=== PATIENT | female | born 1945 | race Caucasian/White ===

== ENCOUNTER 2024-05-09 10:10 | Inpatient (IN) | payer MEDICARE, OTHER, SELFPAY ==
[2024-05-08] VITALS (29 sets, daily range): BP systolic 151–219; BP diastolic 52–99; PULSE 64–67; BMI 33.2
--- NOTE | 2024-05-08 12:24 | EDRN ---
Pt states she was at [employer] and felt out of focus and also had a headache over R eye, around R eye and all over forehead. Pt states she had eaten a large breakfast. Pt states she has not felt well all weak, irregular heart beat, headaches. Pt had a
bad fall backwards in , had LOC, lumbar F, in rehab for weak. Head aches started some time after her fall. Pt was washing hands at sink and fainted.
--- NOTE | 2024-05-08 13:01 | EDRN ---
Clark SOSA in room w/pt at this time.
--- NOTE | 2024-05-08 13:41 | ED.GENMED ---
History of Present Illness
General
Chief Complaint: Weakness
Source: patient
Exam Limitations: none
Time Seen by Provider: 05/08/24 12:37
Nursing documentation reviewed up to this point in time: agreed with
History of Present Illness
History of Present Illness:
79-year-old female presenting to the emergency department today with concerns of lightheadedness while at [employer]enominational today. Did not fully passed out but felt that she was about to was able to sit down his felt lightheaded and unsteady. She claims that
she has felt 'off' since hitting her head 3 months ago. Blood pressure was elevated prior to arrival. Denies specific chest pain shortness of breath or palpitations. Does have history of paroxysmal A-fib is on blood thinner.
Review of Systems
Review of Systems
Allergies reviewed?: Yes
All Other Systems: ROS reviewed and negative except as documented in HPI and ROS
Phy Exam
Physical Exam
Physical Exam:
GENERAL: Alert , in no apparent distress
EYE: pupils equal and reactive
NECK: Supple, no significant adenopathy.
ENT: o/p clr, mmm.
CARDIAC: Regular rate and rhythm .
LUNGS: Clear breath sounds bilaterally, no acute respiratory distress, no wheezes/rales/rhonchi
ABDOMEN: Soft, without focal tenderness, no r/g, no cvat
NEUROLOGICAL: Alert and oriented, no focal neuro deficits 5 out of 5 upper and lower extremity strength normal sensation with palpating bilaterally normal finger-nose and [id number] no pronator drift
SKIN: Warm and dry, skin intact.
MUSCULOSKELETAL: No edema, well perfused.
PSYCH: Normal and appropriate interaction.
Course
Orders/Labs/Results
Orders:
Orders
05/08/24 11:36
EKG [Electrocardiogram (*1)] Urgent
Reason for Study: Fatigue / Weakness
EKG- Treatment ONCE
05/08/24 13:14
CT Head W/o Iv Contrast Urgent
Comment:
Reason For Exam: head injury
Orthostatic VS- Treatment ONCE
05/08/24 13:36
CBC/With Diff [Complete Blood Count/With Diff] Urgent
TSH Reflex To Free T4 Urgent
05/08/24 14:17
Comprehensive Metabolic Panel Urgent
Magnesium Urgent
Troponin I Urgent
05/08/24 15:27
0.9% Sodium Chloride 500 ml [Nss] 500 ml IV BOLUS
05/08/24 15:35
Urinalysis Reflex To Culture Urgent
Date Specimen was Collected: 05/08/24
Time Specimen was Collected: 15:33
Urine Microscopic Reflex Cult Urgent
05/08/24 15:37
Acetaminophen [Tylenol] 1,000 mg .ROUTE .STK-MED ONE
05/08/24 15:38
Acetaminophen [Tylenol] 1,000 mg PO NOW STA
05/08/24 15:41
Lidocaine [Lidocaine 4% Patch] 1 patch .ROUTE .STK-MED ONE
05/08/24 15:45
Lidocaine [Lidocaine 4% Patch] 1 patch TOPICAL DAILY
Apply Lidocaine patch(s) to:: mid back
05/08/24 17:28
Metoprolol [Lopressor] 50 mg PO NOW STA
05/08/24 18:43
HydrALAZINE [Apresoline] 10 mg IV NOW STA
Abnormal Lab Results
05/08/24 05/08/24 05/08/24
13:36 14:17 14:29
RBC 3.90 L 10^6/uL
(4.20-5.40)
Hgb 11.6 L g/dL
(12.0-16.0)
Hct 34.8 L %
(37.0-47.0)
Abs Immat Gran (auto) 0.1 H 10^3/uL
(0-0.05)
Absolute Neuts (auto) 6.6 H 10^3/uL
(1.4-6.5)
BUN 32 H mg/dl
(7-17)
Glucose 154 H mg/dl
(70-99)
Total Protein 6.1 L g/dl
(6.3-8.2)
Ur Occult Blood Reflex
Urine RBC
Urine Bacteria (Reflex)
Urine Albumin (Reflex)
POC Glucose 157 H mg/dl
(70-99)
05/08/24
15:35
RBC
Hgb
Hct
Abs Immat Gran (auto)
Absolute Neuts (auto)
BUN
Glucose
Total Protein
Ur Occult Blood Reflex 1+ A
(Negative)
Urine RBC 3-6 A /HPF
(0-2)
Urine Bacteria (Reflex) Few A
(Negative)
Urine Albumin (Reflex) 4+ A
(Neg - Trace)
POC Glucose
05/08/24 13:36
05/08/24 14:17
Vital Signs
Initial and Last Documented VS:
Initial Vital Signs
Temp Pulse Resp BP Pulse Ox
98 F 73 20 219/88 99
05/08/24 11:40 05/08/24 11:40 05/08/24 11:40 05/08/24 11:40 05/08/24 11:40
Last Documented Vital Signs
Temp Pulse Resp BP Pulse Ox
98 F 60 20 206/74 97
05/08/24 11:40 05/08/24 18:34 05/08/24 18:34 05/08/24 18:34 05/08/24 18:00
MDM/Problems Addressed
MDM/Problems Addressed:
79-year-old female presenting to the emergency department after an episode of feeling lightheaded and weak while at [employer] earlier today. Blood pressure was elevated prior to arrival but improving by the time she was assessed at bedside. Blood
pressure in 160s over 60s during my assessment. Patient no distress normal heart lung exam normal neurologic evaluation. EKG normal here symptoms did improve after receiving some fluids. Patient did have some evidence of potential dehydration
with elevated BUN to creatinine ratio. Blood pressure not improving despite giving additional metoprolol here. Blood pressure in the 200s over 90s. Heart rate in the 60s to 70s. Head CT without emergent findings. Considering continued elevated
blood pressure plan to admit for further treatment and monitoring.
*Critical Care Note
Total Time (30-74mins, 75-104mins- exclusive of procedures): Not Applicable
ED Attending Note
-
Portions of this chart may have been created with voice recognition software.� Occasional wrong word or��sound alike� substitutions may have occurred due to the inherent limitations of voice recognition software.
Discharge Plan
Departure
Patient Disposition: Admit
Date of Disposition: 05/08/24
Time of Disposition: 19:01
Admit to: Telemetry
Admit to doctor: Alirio
Presentation/result/management discussed w/ accepting MD/DO: Hospitalist
Patient with high blood pressure during this ER visit?: Yes
Condition: Good
Covid-19: Not Applicable
Discharge Problem:
Hypertensive urgency
Referrals:
NONE,* [Family Provider] -
Interventions
Interventions:
*Risk Screen - Suicide Last Done: 05/08/24 11:40
*General Assessment Last Done: 05/08/24 12:30
*Neglect/Abuse Screening Last Done: 05/08/24 11:40
ED- Fall Risk Assessment Last Done: 05/08/24 12:32
*ED COVID-19 Vaccine History Last Done: 05/08/24 12:30
ED- Cardiac Assessment Last Done: 05/08/24 12:36
ED- Neurological Assessment Last Done: 05/08/24 12:36
ED- Pulmonary Assessment Last Done: 05/08/24 12:36
Discharge Date and Time
Print Language: KHMER
[2024-05-08 13:43] LABS: % Basophils 0.4 % (0-2); % Eosinophils 1.1 % (0-6); % Immature Granulocytes 0.5 % (0-0.5); % Lymphocytes 23.6 % (20.5-51.1); % Monocytes 6.6 % (1.7-9.3); % Neutrophils 67.8 % (42.2-75.2); Absolute Eosinophils 0.1 10^3/uL (0-0.7); Absolute Immature Granulocytes 0.1 10^3/uL (0-0.05); Absolute Lymphocytes 2.3 10^3/uL (1.2-3.4); Absolute Monocytes 0.6 10^3/uL (0.1-0.6); Absolute Neutrophils 6.6 10^3/uL (1.4-6.5); Hematocrit 34.8 % (37.0-47.0); Hemoglobin 11.6 g/dL (12.0-16.0); Mean Corp Hgb Conc. 33.3 g/dL (33.0-37.0); Mean Corpuscular Hgb 29.7 pg (27.0-31.0); Mean Corpuscular Volume 89.2 fL (81.0-99.0); Mean Platelet Volume 9.6 fL (7.4-10.4); Nucleated Red Blood Cells % 0 %; Platelet Count 258 10^3/uL (130-400); Red Cell Dist. Width 13.5 % (11.5-14.5); White Blood Cell Count 9.7 10^3/uL (4.8-10.8)
[2024-05-08 14:29] LABS: TSH Reflex To Free T4 4.35 uIU/ml (0.47-4.68)
[2024-05-08 14:33] LABS: Glucose - Point of Care 157 mg/dl (70-99)
[2024-05-08 14:40] LABS: ALT (SGPT) 22 U/L (0-35); AST (SGOT) 24 U/L (14-36); Albumin 3.7 g/dl (3.5-5.0); Alkaline Phosphatase 67 U/L (38-126); Blood Urea Nitrogen 32 mg/dl (7-17); Calcium 9.8 mg/dl (8.4-10.2); Carbon Dioxide 24 mmol/L (22-30); Chloride 107 mmol/L (98-107); Estimated Creatinine Clearance 61 ml/min; Glucose 154 mg/dl (70-99); Magnesium 1.9 mg/dl (1.6-2.3); Potassium 4.5 mmol/L (3.5-5.1); Sodium 137 mmol/L (135-145); Total Bilirubin 0.3 mg/dl (0.2-1.3); Total Protein 6.1 g/dl (6.3-8.2); eGFR > 60.00
[2024-05-08 14:52] LABS: Troponin I < 0.012 ng/ml
--- NOTE | 2024-05-08 15:07 | EDRN ---
Pt was requesting to eat saying she felt she was getting hypoglycemic so this RN checked pt's accucheck to reassure pt it is okay to wait to eat.
--- NOTE | 2024-05-08 15:20 | EDRN ---
Pt remained 'lightheaded' from before and throughout orthostatic VS check. Ptalso could not lie totally flat r/t her mid thoracic back pain.
--- NOTE | 2024-05-08 15:24 | EDRN ---
Pt in BR attempting urine spec at this time.
[2024-05-08] MEDS: TYLENOL 1000 MG PO (15:39)
[2024-05-08] MEDS: LIDOCAINE 4% PATCH 1 PATCH TOPICAL (15:44)
[2024-05-08 15:58] LABS: Urine Albumin 4+ (Neg - Trace); Urine Bilirubin Negative (Negative); Urine Character Clear (Clear); Urine Color Yellow; Urine Glucose Negative (Negative); Urine Ketone Negative (Negative); Urine Leukocyte Negative (Negative); Urine Nitrite Negative (Negative); Urine Occult Blood 1+ (Negative); Urine Urobilinogen Negative (Neg - 1+)
[2024-05-08 17:05] LABS: Urine Bacteria Few (Negative)
[2024-05-08] MEDS: LOPRESSOR 50 MG PO (17:51)
--- NOTE | 2024-05-08 18:30 | EDRN ---
Clark Navarro PA was in to see pt at this time.
[2024-05-08] MEDS: APRESOLINE 10 MG IV ×2 (19:12→23:18)
--- NOTE | 2024-05-08 22:42 | HPS.HSE ---
Family Physician
-
Family Physician: * NONE
Chief Complaint
-
dizziness
History of Present Illness
79-year-old female past medical history of paroxysmal atrial fibrillation on Eliquis, hypertension, diabetes, hyperlipidemia, presenting with lightheadedness while at congregational today. She was sitting down when she felt headache and something was not
right in her head and felt lightheaded and weak and as if she was going to pass out. She denies any chest pain or shortness of breath.
Patient had a syncopal episode 3 months ago when she suddenly passed out and hit her head. She was admitted at [facility] and syncope was attribute to her fibrillation. She also had a urinary tract infection during that admission. She
followed up with cardiology who did not feel that the syncope was secondary to A-fib. She states that her head is not felt right since that incident.
Patient was found to have elevated blood pressure after that admission. She took her blood pressure cuff to her primary care physician and apparently her blood pressure cuff showed higher blood pressure than the one at the office. She did not
continue to follow-up checking her blood pressure at home. She has been consistently taking her blood pressure medications.
Medical History
Past Medical History
Past Medical History: Reports Other (paroxysmal atrial fibrillation on Eliquis, hypertension, diabetes, hyperlipidemia,)
Past Surgical History: Reports None
Social History
Tobacco: Non-smoker
Alcohol: None
Drug: None
Family History
Family History: Not pertinent
Allergies / Home Medications
Allergies reflects when Allergies were last updated in [employer].
Home Medications with original date entered in [employer]
Allergy/Medication List:
Allergies
Allergy/AdvReac Type Severity Reaction Status Date / Time
cephalexin [From Keflex] Allergy Hives Verified 05/08/24 11:40
Home Medications
acetaminophen 650 mg tablet,extended release 1,300 mg PO [id number] PRN mild pain 05/08/24
apixaban 5 mg tablet (Eliquis) 5 mg PO BID 05/08/24
calcium carbonate 500 mg PO QPM 05/08/24
cyanocobalamin (vitamin B-12) 1,000 mcg tablet 1,000 mcg PO QPM 05/08/24
diltiazem HCl 120 mg capsule,24 hr,extended release 120 mg PO DAILY 05/08/24
famotidine-Ca carb-mag hydrox 10 mg-800 mg-165 mg chewable tablet (Pepcid Complete) 1 tab PO BIDPRN PRN gerd 05/08/24
fenofibrate nanocrystallized 145 mg tablet (Tricor) 145 mg PO DAILY 05/08/24
insulin glargine 100 unit/mL (3 mL) subcutaneous pen (Basaglar KwikPen U-100 Insulin) 33 unit SC HS 05/08/24
losartan 50 mg tablet 50 mg PO DAILY 05/08/24
metformin 1,000 mg tablet 1,000 mg PO DAILY 05/08/24
metoprolol succinate 50 mg tablet,extended release 24 hr (Toprol XL) 50 mg PO DAILY 05/08/24
polyethylene glycol 3350 17 gram oral powder packet (Miralax) 17 g PO DAILY 05/08/24
Review of Systems
-
History Source: Patient
A 12 point ROS was completed and negative except as noted: Yes
Constitutional: Reports No Symptoms
EENT: Reports No Symptoms
Respiratory: Reports No Symptoms
Cardiac: Reports No Symptoms
Abdomen/GI: Reports No Symptoms
: Reports No Symptoms
Musculoskeletal: Reports No Symptoms
Skin: Reports No Symptoms
Neurological: Reports No Symptoms
Endocrine: Reports No Symptoms
Hematologic/Lymphatic: Reports No Symptoms
Psych: Reports No Symptoms
Physical Exam
Vital Signs
Vital Signs
Temp Pulse Resp BP Pulse Ox
98 F 62 18 189/61 97
05/08/24 11:40 05/08/24 22:00 05/08/24 22:00 05/08/24 22:00 05/08/24 18:00
Physical Exam
General: Well Developed, Well Nourished and No Apparent Distress
HEENT: NormoCephalic, Moist mucous membranes and Atraumatic
Respiratory: Clear
Cardiac: S1/S2 and Regular Rhythm; No Murmur or Rub
GI: Soft, Non Tender, Non Distended and Normal Bowel Sounds; No Organomegaly
Rectal: Deferred by Provider
Musculoskeletal: No Clubbing, No Cyanosis and No Edema
Skin: No Rash
Neuro: Nonfocal/grossly intact
Laboratory Results
-
05/08/24 13:36
05/08/24 14:17
Laboratory Results
Total Bilirubin 0.3 mg/dl (0.2-1.3) 05/08/24 14:17
AST 24 U/L (14-36) 05/08/24 14:17
ALT 22 U/L (0-35) 05/08/24 14:17
Alkaline Phosphatase 67 U/L (38-126) 05/08/24 14:17
Troponin I < 0.012 ng/ml 05/08/24 14:17
Data Reviewed
-
Lab Data: Labs Reviewed by me
Old Records: Reviewed
Impression/Plan
-
IMPRESSION:
PLAN:
# Presyncopal episode unclear etiology, could be vasovagal versus postconcussive headache related from prior head trauma
-Orthostatics negative
-CT head shows no acute intracranial abnormality
-Telemetry
-IV fluids given
# Hypertensive urgency
# Essential hypertension
-EKG shows sinus rhythm with first-degree AV block, LVH
-Troponin negative
-No neurological symptoms
-Metoprolol, hydralazine given
-Continue as needed hydralazine
-Continue losartan, will likely need to uptitrate
Paroxysmal atrial fibrillation
-Continue Eliquis
-Continue diltiazem
-Continue metoprolol
Type 2 diabetes
-Continue metformin
-Continue Lantus 33 units
-Continue insulin sliding scale
Hyperlipidemia
-Continue fenofibrate
Full code
DVT prophylaxis�Eliquis
Regular diet
[2024-05-09] VITALS (9 sets, daily range): BP systolic 151–182; BP diastolic 56–78; BMI 31.6
--- NOTE | 2024-05-09 01:00 | PTCARENOTE ---
Patient arrived from the ED via stretcher. Pt AAOx3. Pt ambulated into the room with the use of her own walker. Complains of chronic lower back/neck pain. Reports some light headedness. Patient oriented to the room, call richard is within reach.
[2024-05-09 01:06] LABS: Glucose - Point of Care 232 mg/dl (70-99)
[2024-05-09] MEDS: ELIQUIS 5 MG PO ×3 (01:22→19:48)
[2024-05-09] MEDS: TYLENOL 650 MG PO ×2 (02:10→08:25)
[2024-05-09 06:36] LABS: % Basophils 0.3 % (0-2); % Eosinophils 1.9 % (0-6); % Immature Granulocytes 0.7 % (0-0.5); % Lymphocytes 23.9 % (20.5-51.1); % Monocytes 7.7 % (1.7-9.3); % Neutrophils 65.5 % (42.2-75.2); Absolute Eosinophils 0.1 10^3/uL (0-0.7); Absolute Immature Granulocytes 0.1 10^3/uL (0-0.05); Absolute Lymphocytes 1.8 10^3/uL (1.2-3.4); Absolute Monocytes 0.6 10^3/uL (0.1-0.6); Absolute Neutrophils 4.9 10^3/uL (1.4-6.5); Hematocrit 34.4 % (37.0-47.0); Hemoglobin 10.9 g/dL (12.0-16.0); Mean Corp Hgb Conc. 31.7 g/dL (33.0-37.0); Mean Corpuscular Hgb 29.4 pg (27.0-31.0); Mean Corpuscular Volume 92.7 fL (81.0-99.0); Mean Platelet Volume 9.9 fL (7.4-10.4); Nucleated Red Blood Cells % 0 %; Platelet Count 252 10^3/uL (130-400); Red Blood Cell Count 3.71 10^6/uL (4.20-5.40); Red Cell Dist. Width 13.5 % (11.5-14.5); White Blood Cell Count 7.4 10^3/uL (4.8-10.8)
[2024-05-09 06:50] LABS: ALT (SGPT) 19 U/L (0-35); AST (SGOT) 21 U/L (14-36); Albumin 3.3 g/dl (3.5-5.0); Alkaline Phosphatase 50 U/L (38-126); Blood Urea Nitrogen 25 mg/dl (7-17); Carbon Dioxide 23 mmol/L (22-30); Chloride 107 mmol/L (98-107); Estimated Creatinine Clearance 68 ml/min; Glucose 188 mg/dl (70-99); Potassium 4.2 mmol/L (3.5-5.1); Sodium 136 mmol/L (135-145); Total Bilirubin 0.3 mg/dl (0.2-1.3); Total Protein 5.5 g/dl (6.3-8.2); eGFR > 60.00
--- NOTE | 2024-05-09 08:03 | W.PN.HOSP.TC ---
Today's Communication/Plan
-
Losartan frequency increased for better blood pressure control.
Low sodium diet.
Monitor on blood pressure. Monitor on telemetry.
Echo.
Assessment / Plan
Assessment / Plan
Physical Exam
General: Well Developed, Well Nourished and No Apparent Distress
HEENT: Normocephalic, Moist mucous membranes and Atraumatic
Respiratory: Clear to Auscultation Bilaterally
Cardiac: S1/S2 and Regular Rhythm
GI: Soft, Non Tender, Non Distended and Normal Bowel Sounds
Musculoskeletal: No Cyanosis and No Edema
Skin: Warm. Dry.
Neuro: AAOx3. Cranial Nerves 2 through 12, strength and sensation are nonfocal/grossly intact throughout.
Assessment/Plan
# Presyncopal episode unclear etiology, could be vasovagal versus postconcussive headache related from prior head trauma
# Syncopal episode with head injury ~3 months prior with postconcussive like symptoms since then
-Orthostatics negative
-Patient says her glucose was elevated yesterday
-CT head showed no acute intracranial abnormality
-Severely high blood pressure (SBP in the 200s) contributed to symptoms or near syncope?
-Per physical therapist Dayna Yañez, patient seems like she has post-concussive syndrome (and will need an outpatient physical therapy script, can go home when ready, and has as needed rolling walker at home)
-Continue monitoring on telemetry
-IV fluids given
-Check echo
# Hypertensive urgency
# Essential hypertension
-Blood pressure still quite high
-EKG showed sinus rhythm with first-degree AV block, LVH
-Troponin negative
-No neurological symptoms
-Metoprolol, hydralazine given
-Continue as needed hydralazine
-Increased Losartan frequency to BID
-Diet changed to low sodium diet
Paroxysmal atrial fibrillation
-Continue Eliquis
-Continue diltiazem
-Continue metoprolol
-Continue monitoring on telemetry
Type 2 diabetes
-Continue metformin
-Continue Lantus but at a reduced dose to prevent hypoglycemia
-Continue insulin sliding scale
Hyperlipidemia
-Continue fenofibrate
Full code
DVT prophylaxis�Eliquis
Regular diet
Anticipated Discharge: 24 - 48 hours
Subjective/Interval History
-
Date of Service: May 09, 2024
Patient was seen and examined. She reported no further dizziness symptoms since her last episode prior to coming to the hospital.
Objective Data
-
Labs:
Laboratory Results
05/09/24
05:20
WBC 7.4
Hgb 10.9 L
Hct 34.4 L
Plt Count 252
Sodium 136
Potassium 4.2
Chloride 107
Carbon Dioxide 23
BUN 25 H
Creatinine 0.7
Glucose 188 H
Calcium 10.0
Total Bilirubin 0.3
AST 21
ALT 19
Alkaline Phosphatase 50
Vital Signs:
Vital Signs
Temp Pulse Resp BP Pulse Ox
98.2 F 67 18 155/61 95
05/09/24 03:51 05/09/24 03:51 05/09/24 03:51 05/09/24 03:51 05/09/24 03:51
I&O
05/08/24 05/09/24 05/10/24
06:59 06:59 06:59
Intake Total 480 / 480
Balance 480 / 480
[2024-05-09] MEDS: CARDIZEM CD 120 MG PO (08:14)
[2024-05-09] MEDS: NOVOLOG FLEXPEN-LOW RESISTANCE 1 UNITS SC ×2 (08:16→18:04)
[2024-05-09] MEDS: GLUCOPHAGE 1000 MG PO (08:16)
[2024-05-09] MEDS: TRICOR 145 MG PO (08:16)
[2024-05-09] MEDS: LIDOCAINE 4% PATCH 1 PATCH TOPICAL (08:17)
[2024-05-09] MEDS: TOPROL XL 50 MG PO (08:17)
[2024-05-09] MEDS: COZAAR 50 MG PO ×2 (08:17→19:48)
[2024-05-09] MEDS: MIRALAX 17 GRAMS PO (08:30)
[2024-05-09 08:39] LABS: Glucose - Point of Care 214 mg/dl (70-99)
[2024-05-09 11:47] LABS: Glucose - Point of Care 219 mg/dl (70-99)
[2024-05-09] MEDS: NOVOLOG FLEXPEN-LOW RESISTANCE 2 UNITS SC (12:14)
--- NOTE | 2024-05-09 15:54 | CM ---
Addendum entered by Dori Deal RN 05/09/24 16:02:
Admission notified Pt requested rena Hendrickson in [place] [phone] as personnel security assistant.
Original Note:
Alert awake oriented patient who lives alone in a 1 story home with one step to enter. She is independent in driving and in all activities of daily living.
She sleeps in recliner.Will need PT OT for dc planning.Requested PT OT order.
walker and cane
[facility] HX
Pharmacy [facility] [place]
PCP Angela Alex Certified Scrub Tech
PLAN will need PT OT evals for dc planning .
[2024-05-09 16:30] LABS: Glucose - Point of Care 177 mg/dl (70-99)
[2024-05-09] MEDS: VITAMIN B-12 1000 MCG PO (18:03)
[2024-05-09] MEDS: OSCAL CAL 500 500 MG PO (18:03)
[2024-05-09 21:17] LABS: Glucose - Point of Care 242 mg/dl (70-99)
[2024-05-09] MEDS: LANTUS 0.05 UNITS SC (22:18)
[2024-05-10 03:44] VITALS: BP 168/68
[2024-05-10 07:19] LABS: Glucose - Point of Care 214 mg/dl (70-99)
[2024-05-10 07:55] VITALS: BP 166/67
[2024-05-10] MEDS: GLUCOPHAGE 1000 MG PO (08:44)
[2024-05-10] MEDS: TOPROL XL 50 MG PO (08:44)
[2024-05-10] MEDS: COZAAR 50 MG PO (08:44)
[2024-05-10] MEDS: CARDIZEM CD 120 MG PO (08:44)
[2024-05-10] MEDS: TRICOR 145 MG PO (08:44)
[2024-05-10] MEDS: ELIQUIS 5 MG PO (08:45)
[2024-05-10] MEDS: LIDOCAINE 4% PATCH 1 PATCH TOPICAL (08:45)
[2024-05-10] MEDS: MIRALAX 17 GRAMS PO (08:46)
[2024-05-10] MEDS: NOVOLOG FLEXPEN-LOW RESISTANCE 2 UNITS SC (08:46)
--- NOTE | 2024-05-10 10:10 | W.PN.HOSP.TC ---
Today's Communication/Plan
-
Discharge today
Assessment / Plan
Assessment / Plan
Physical Exam
General: Well Developed, Well Nourished and No Apparent Distress
HEENT: Normocephalic, Moist mucous membranes and Atraumatic
Respiratory: Clear to Auscultation Bilaterally
Cardiac: S1/S2 and Regular Rhythm
GI: Soft, Non Tender, Non Distended and Normal Bowel Sounds
Musculoskeletal: No Cyanosis and No Edema
Skin: Warm. Dry.
Neuro: AAOx3. Cranial Nerves 2 through 12, strength and sensation are nonfocal/grossly intact throughout.
Assessment/Plan
# Presyncopal episode unclear etiology, could be vasovagal versus postconcussive headache related from prior head trauma
# Syncopal episode with head injury ~3 months prior with postconcussive like symptoms since then
-Orthostatics negative
-Patient says her glucose was elevated around the time of her episode of dizziness
-CT head showed no acute intracranial abnormality
-Severely high blood pressure (SBP in the 200s) contributed to symptoms or near syncope?
-Per physical therapist Dayna Yañez, patient seems like she has post-concussive syndrome (and will need an outpatient physical therapy script, can go home when ready, and has as needed rolling walker at home)
-Continue monitoring on telemetry
-IV fluids given
-Echo is unremarkable
# Hypertensive urgency
# Essential hypertension
-Blood pressures have improved after Losartan increase
-EKG showed sinus rhythm with first-degree AV block, LVH
-Troponin negative
-No neurological symptoms
-Metoprolol, hydralazine given
-Continue as needed hydralazine -- has not needed as needed Hydralazine
-Increased Losartan frequency to BID
-Diet: low sodium diet
Paroxysmal atrial fibrillation
-Continue Eliquis
-Continue diltiazem
-Continue metoprolol
-Continue monitoring on telemetry
Type 2 diabetes
-Continue metformin
-Continue Lantus but at a reduced dose to prevent hypoglycemia
-Continue insulin sliding scale
Hyperlipidemia
-Continue fenofibrate
Full code
DVT prophylaxis�Eliquis
Regular diet
More than 30 minutes spent in discharge including
Final examination of the patient
Summarizing hospital stay
Instructions for continuing care to all relevant caregivers
Preparation of discharge records, prescriptions, and referral forms
Total time spent (in minutes): 39
Anticipated Discharge: Today
Subjective/Interval History
-
Date of Service: May 10, 2024
Patient was seen and examined. She reported feeling great, she denied any dizziness, chest pain, SOB or any other complaints, and would like to go home today.
Objective Data
-
Vital Signs:
Vital Signs
Temp Pulse Resp BP Pulse Ox
98.6 F 66 20 166/67 97
05/10/24 07:55 05/10/24 07:55 05/10/24 07:55 05/10/24 07:55 05/10/24 07:55
I&O
05/09/24 05/10/24 05/11/24
06:59 06:59 06:59
Intake Total 480 / 480 600 / 600
Output Total 0 / 0
Balance 480 / 480 600 / 600
[2024-05-10 11:55] VITALS: BP 171/72
[2024-05-10 12:13] LABS: Glucose - Point of Care 144 mg/dl (70-99)
[2024-05-10] MEDS: NOVOLOG FLEXPEN-LOW RESISTANCE SC (12:18)
--- NOTE | 2024-05-10 12:29 | W.DCSUMMARY ---
Discharge Summary
Discharge Data
Date of Admission: 05/08/24
Date of Discharge: 05/10/24
Total time spent discharging patient (in min): 39
-
Pending Results: No
Hospital Course
79-year-old female with past medical history of paroxysmal atrial fibrillation on Eliquis, hypertension, diabetes mellitus, hyperlipidemia, presented with lightheadedness. She was sitting down when she felt headache and something was not right in
her head and felt lightheaded and weak and as if she was going to pass out, but she was able to ambulate around this time per her. She denied any chest pain, palpitations or shortness of breath. Patient had a syncopal episode ~3 months prior, when
she suddenly passed out and hit her head. She was admitted at [facility] and syncope was attributed to her atrial fibrillation. She also had a urinary tract infection during that admission. She followed up with cardiology who did not
feel that the syncope was secondary to A-fib. She stated that her head is not felt right since that incident. Patient was found to have elevated blood pressure after that admission. She took her blood pressure cuff to her primary care physician and
apparently her blood pressure cuff showed higher blood pressure than the one at the office. She did not continue to follow-up checking her blood pressure at home. Patient was found to have systolic blood pressure in the 200s mmHg on presentation.
Patient's Lisinopril dose frequency was increased and she was placed on a low sodium diet. Echocardiogram as per press tender incendiary grenade's report showed, 'Normal biventricular size and systolic function without regional wall motion abnormality. Estimated LVEF
55-60%. Aortic sclerosis without stenosis.' Patient's symptoms were attributed to very high blood pressure and post-concussion syndrome from her fall with head trauma a few months prior. Patient wanted to go home and was stable for discharge with
outpatient follow-up.
Discharge Plan
-
Patient Disposition: Home (Routine Discharge)
Discharge Diagnosis/Procedures: # Pre-syncopal episode unclear etiology, suspected to be post-concussive headache related from prior head trauma vs. very high blood
pressure
# Syncopal episode with head injury ~3 months prior with post-concussive like symptoms since then
# Hypertensive urgency
# Essential hypertension
# Paroxysmal atrial fibrillation
# Type 2 Diabetes Mellitus
# Hyperlipidemia
Condition: Good
Diet: Low Fat, Low Cholesterol, Low Sodium, 2 Gram Sodium and Diabetic, Carb Controlled
Activity: As tolerated
Driving Restrictions: Not until seen by your Dr
Referrals:
Lala Figueroa CRNP [Specified Professional Personl] - in two to three weeks (Hospital follow-up; post-concussive syndrome)
NONE,* [Family Provider] -
Additional Discharge Medication Instructions: Losartan has been increased to 50 mg BID and a prescription for this has been sent to your pharmacy.
Lidocaine patch is new.
Insulin Glargine has been decreased to prevent low blood sugars -- discuss this with your PCP this week.
Prescriptions:
New
lidocaine 4 % Adhesive Patch,Medicated
1 patch topical DAILY Qty: 5 1RF
Rx Instructions:
Apply to mid back. Remove patch every evening.
losartan 50 mg Tablet
50 mg PO BID Qty: 60 1RF
Continued
diltiazem HCl 120 mg Capsule,Extended Release 24hr
120 mg PO DAILY
polyethylene glycol 3350 [Miralax] 17 gram Powder In Packet
17 g PO DAILY
metoprolol succinate [Toprol XL] 50 mg Tablet Extended Release 24 Hr
50 mg PO DAILY
cyanocobalamin (vitamin B-12) 1,000 mcg Tablet
1,000 mcg PO QPM
acetaminophen 650 mg Tablet Extended Release
1,300 mg PO [id number] PRN (Reason: mild pain)
calcium carbonate 500 mg calcium (1,250 mg) Tablet
500 mg PO QPM
metformin 1,000 mg Tablet
1,000 mg PO DAILY
Pepcid Complete 10-800-165 mg Tablet,Chewable
1 tab PO BIDPRN PRN (Reason: gerd)
fenofibrate nanocrystallized [Tricor] 145 mg Tablet
145 mg PO DAILY
Eliquis 5 mg Tablet
5 mg PO BID
Changed
insulin glargine [Basaglar KwikPen U-100 Insulin] 100 unit/mL (3 mL) Insulin Pen
5 unit SC HS Qty: 0 0RF
Discontinued
losartan 50 mg Tablet
50 mg PO DAILY
Discharge Orders:
Discharge Patient (As Directed); Ordered 05/10/24
Ordered By: Logan Colón
Discharge Date and Time
Discharge Date/Time: 05/10/24 15:11
Print Language: MAURITIAN
--- NOTE | 2024-05-10 13:31 | PTCARENOTE ---
Reviewed discharge instructions with patient. Patient verbalizes understanding of teaching. Denies questions at this time. IV removed. Tele monitor removed. Patient left via wheelchair with staff escort. Friend at bedside to transport patient home.
--- NOTE | 2024-05-10 13:39 | CM ---
MD entered order for discharge.
Spoke with pt she said she was ready for dc today to home .Offered VN she declined .
She said she will be setting up out pt PT near her home.
Her friend Jemima Fisher drove her home .
PLAN Home no needs
== END 2024-05-10 15:11 | disposition home or self-care (01) | DRG 103 ==
LOC: 4 EAST ACU 10:10
PROVIDERS: Physician Assistant; ADMITTING PHYSICIAN Hospitalist; ATTENDING PHYSICIAN Hospitalist; EMERGENCY PHYSICIAN Emergency Medicine
DX: G44.309 Post-traumatic headache, unspecified, not intractable (principal); I16.0 Hypertensive urgency; F07.81 Postconcussional syndrome; E78.5 Hyperlipidemia, unspecified; I10 Essential (primary) hypertension; I48.0 Paroxysmal atrial fibrillation; E11.9 Type 2 diabetes mellitus without complications; R55 Syncope and collapse; Z88.1 Allergy status to other antibiotic agents; Z79.01 Long term (current) use of anticoagulants; Z79.899 Other long term (current) drug therapy; Z79.4 Long term (current) use of insulin; Z79.84 Long term (current) use of oral hypoglycemic drugs; Z87.828 Personal history of other (healed) physical injury and trauma
CPT/HCPCS: 70450; 80053; 81003; 81015; 82962; 83036; 83735; 84443; 84484; 85025; 93005; 93306; 96374; 97162; 97166; 99285